=== PATIENT | male | born 1940 | race Caucasian/White ===

== ENCOUNTER 2024-07-07 10:13 | Emergency (ER) | payer OTHER ==
[~2024-07-07] VITALS: Ht 170.2 cm; Wt 88.5 kg
[2024-07-07 10:50] LABS: BASOPHILS # (AUTO) 0.1 K/UL (0.0-0.2); BASOPHILS % (AUTO) 0.6 % (0.0-2.0); EOSINOPHILS # (AUTO) 0.1 K/uL (0.0-0.7); EOSINOPHILS % (AUTO) 0.9 % (0.0-7.0); HEMATOCRIT 36.6 % (36.7-47.1); LYMPHOCYTES # (AUTO) 1.2 K/uL (0.8-4.8); LYMPHOCYTES % (AUTO) 9.4 % (20.5-51.5); MEAN CORPUSCULAR HEMOGLOBIN 32.4 uug (23.8-33.4); MEAN CORPUSCULAR HGB CONC 33 g/dL (32.5-36.3); MEAN CORPUSCULAR VOLUME 98.9 fL (73.0-96.2); MONOCYTES # (AUTO) 0.7 K/uL (0.1-1.30); MONOCYTES % (AUTO) 5.5 % (0.0-11.0); NEUTROPHILS # (AUTO) 10.8 K/uL (1.8-8.9); NEUTROPHILS % (AUTO) 83.6 % (38.5-71.5); PLATELET COUNT (AUTO) 185 K/uL (152-348); WHITE BLOOD COUNT (AUTO) 12.9 K/uL (3.6-10.2)
[2024-07-07 11:19] LABS: ALANINE AMINOTRANSFERASE 22 U/L (16-63); ALBUMIN 1.9 g/dL (3.4-5.0); ALKALINE PHOSPHATASE 81 U/L (50-136); ASPARTATE AMINOTRANSFERASE 16 U/L (15-37); BILIRUBIN,DIRECT 0.1 mg/dL (0.0-0.2); BILIRUBIN,TOTAL 0.3 mg/dL (0.2-1.0); CALCIUM 9.4 mg/dL (8.5-10.1); CARBON DIOXIDE 36 mmol/L (21-32); CHLORIDE 102 mmol/L (98-107); CREATININE 1.9 mg/dL (0.6-1.3); GLUCOSE 151 mg/dL (74-106); NT-PRO BNP 1465 pg/mL (0-125); POTASSIUM 3.8 mmol/L (3.5-5.1); SODIUM SERUM 144 mmol/L (136-145); TOTAL PROTEIN, SERUM 7.1 g/dL (6.4-8.2); UREA NITROGEN, BLOOD 58 mg/dL (7-18)
[2024-07-07 11:25] LABS: DIFFERENTIAL COMMENT 1
[2024-07-07] MEDS ORDERED: CEFTRIAXONE /D5W 50ML IVPB **ER PYXIS IV ONE (12:45)
[2024-07-07] MEDS: IV NORMAL SALINE 1000 ML BAG IV ONE (12:46)
[2024-07-07] MEDS: CEFTRIAXONE 1 G in IV DEXTROSE 5% 50 ML IV ONE (12:46)
[2024-07-07] MEDS ORDERED: AZITHROMYCIN 250 MG TABLET ONE (13:12)
[2024-07-07] MEDS: AZITHROMYCIN 250 MG TABLET PO ONE (13:13)
[2024-07-07 17:15] VITALS: O2SAT 95
== END 2024-07-07 17:28 | disposition short-term general hospital (02) ==
LOC: ER 10:13
DX: J18.1 Lobar pneumonia, unspecified organism (principal); R04.2 Hemoptysis; I11.9 Hypertensive heart disease without heart failure; I25.10 Atherosclerotic heart disease of native coronary artery without angina pectoris; J44.0 Chronic obstructive pulmonary disease with (acute) lower respiratory infection; Z95.5 Presence of coronary angioplasty implant and graft; Z99.81 Dependence on supplemental oxygen; Z20.822 Contact with and (suspected) exposure to COVID-19; Z88.2 Allergy status to sulfonamides; Z88.8 Allergy status to other drugs, medicaments and biological substances
CPT/HCPCS: 99285; 96365; 71250; 71045; 87426; 87804 ×2; 80076; 80048; 83880; 85025; 84145; 85730; 87040 ×2; 84484; 36415; 93005; 83605; J0696; J7040 ×2; A4606; A4663; C1758; Q0144